=== PATIENT | female | born 1965 | race Caucasian/White ===

== ENCOUNTER 2021-09-01 17:07 | Observation (INO) | payer OTHER ==
[~2021-09-01 17:07] MED LIST: Iopamidol-370 76% 500 ML 1 ML ONE
[2021-09-01 17:39] LABS: #Eosinphils 0.1 thou/uL (0.0-0.7); #Lymphocytes 1.9 thou/uL (1.20-3.40); #Monocytes 0.9 thou/uL (0.11-0.59); #Neutrophils 9.7 thou/uL (1.40-6.50); %Basophils 0.1 % (0.0-1.0); %Eosinophils 1.1 % (0.0-10.0); %Lymphocytes 15.3 % (21.0-51.0); %Monocytes 6.8 % (0.0-10.0); %Neutrophils 76.7 % (42.0-75.0); Hemoglobin 14.9 g/dL (12.0-16.0); Mean Corpuscular HGB CONC 33.3 g/dL (32.0-36.0); Mean Corpuscular Hemoglobin 30.6 pg (27.0-31.0); Mean Corpuscular Volume 91.8 fL (78.0-98.0); Mean Platelet Volume 8.2 fL (7.4-10.4); Platelet Count 226 thou/uL (130-400); RBC Distribution Width 12.3 % (11.5-14.5); Red Blood Cell (RBC) Count 4.86 mill/uL (4.20-5.40); White Blood Cell (WBC) Count 12.7 thou/uL (4.8-10.8)
[2021-09-01 17:48] LABS: ALT (SGPT) 12 U/L (8-55); AST (SGOT) 9 U/L (5-34); Alkaline Phosphatase 105 U/L (40-110); Anion Gap 13 mmol/L (10-20); BUN (Urea Nitrogen) 16 mg/dL (9.8-20.1); Bilirubin, Total 0.9 mg/dL (0.2-1.2); Calc. Creatinine Clearance 0 mL/min (70-130); Calcium 8.9 mg/dL (7.8-10.44); Carbon Dioxide 26 mmol/L (22-29); Chloride 102 mmol/L (98-107); Globulin 2.8 g/dL (2.4-3.5); Glucose 118 mg/dL (70-105); Lipase 15 U/L (8-78); Potassium 3.9 mmol/L (3.5-5.1); Protein, Total 6.8 g/dL (6.0-8.3); Sodium 137 mmol/L (136-145)
[2021-09-01] MEDS ORDERED: Aspirin Chewable 81 MG TAB ONE (18:39)
[2021-09-01 18:52] LABS: Bilirubin Negative (Negative); Blood, Urine Negative (Negative); Clarity Turbid (Clear); Glucose, Urine (Dipstick) Normal (Negative); Ketone, Urine Negative (Negative); Leukocyte Negative Leu/uL (Negative); Nitrite Negative (Negative); Protein, Urine (Dipstick) Negative (Neg-Trace); Specific Gravity, Urine 1.017 (1.002-1.036); Urobilinogen Normal mg/dL (Less than 2)
[2021-09-01] MEDS ORDERED: Morphine 4 MG/ML VIAL ONE (18:54)
[2021-09-01 21:44] VITALS: BMI 49.9
[2021-09-01 22:17] LABS: Troponin I Less than 0.010 ng/mL (< 0.028)
[2021-09-01] MEDS ORDERED: Ondansetron PF 4 MG/2 ML Vial IVP PRN (22:43)
[2021-09-01] MEDS ORDERED: Acetaminophen 325 MG TAB PO PRN (22:43)
[2021-09-01] MEDS ORDERED: Morphine 4 MG/ML VIAL SLOW IVP PRN (22:55)
[2021-09-02 00:06] LABS: Troponin I Less than 0.010 ng/mL (< 0.028)
[2021-09-02] MEDS: Nitroglycerin 0.4 MG TAB (25 Tab Bottle) SL PRN ×2 (02:33→02:54)
[2021-09-02] MEDS ORDERED: Lidocaine 2% Viscous Solution 20 ML, Aluminum & Magnesium Hydroxide 30 ML, Donnatal Eli... SSW SCH (02:57)
[2021-09-02 03:21] LABS: #Eosinphils 0.2 thou/uL (0.0-0.7); #Lymphocytes 2.1 thou/uL (1.20-3.40); #Monocytes 0.8 thou/uL (0.11-0.59); #Neutrophils 8.3 thou/uL (1.40-6.50); %Basophils 0.1 % (0.0-1.0); %Eosinophils 1.3 % (0.0-10.0); %Lymphocytes 18.2 % (21.0-51.0); %Monocytes 7.1 % (0.0-10.0); %Neutrophils 73.3 % (42.0-75.0); Mean Corpuscular HGB CONC 33.8 g/dL (32.0-36.0); Mean Corpuscular Hemoglobin 31.4 pg (27.0-31.0); Mean Corpuscular Volume 92.7 fL (78.0-98.0); Platelet Count 200 thou/uL (130-400); RBC Distribution Width 12.2 % (11.5-14.5); Red Blood Cell (RBC) Count 4.47 mill/uL (4.20-5.40); White Blood Cell (WBC) Count 11.4 thou/uL (4.8-10.8)
[2021-09-02 03:40] LABS: Troponin I Less than 0.010 ng/mL (< 0.028)
[2021-09-02 04:02] LABS: Anion Gap 10 mmol/L (10-20); BUN (Urea Nitrogen) 11 mg/dL (9.8-20.1); Calc. Creatinine Clearance 251 mL/min (70-130); Calcium 8.7 mg/dL (7.8-10.44); Carbon Dioxide 24 mmol/L (22-29); Chloride 105 mmol/L (98-107); Glucose 111 mg/dL (70-105); Potassium 3.3 mmol/L (3.5-5.1); Sodium 136 mmol/L (136-145)
[2021-09-02] MEDS ORDERED: Ketorolac Tromethamine 30 MG/ML VIAL IVP SCH (08:30)
[2021-09-02] MEDS: Famotidine 20 MG TAB PO SCH ×2 (08:49→19:47)
[2021-09-02] MEDS: Ibuprofen 600 MG TAB PO SCH ×3 (08:49→19:47)
[2021-09-02 11:29] LABS: SARS-CoV-2 PCR by NAA Not Detected (NotDetected)
[2021-09-03] MEDS: Ibuprofen 600 MG TAB PO SCH ×2 (02:37→08:38)
[2021-09-03 04:52] LABS: #Basophils 0.1 thou/uL (0.0-0.2); #Eosinphils 0.4 thou/uL (0.0-0.7); #Monocytes 0.7 thou/uL (0.11-0.59); #Neutrophils 6.6 thou/uL (1.40-6.50); %Basophils 0.7 % (0.0-1.0); %Eosinophils 4.5 % (0.0-10.0); %Lymphocytes 20.3 % (21.0-51.0); %Monocytes 7.3 % (0.0-10.0); %Neutrophils 67.3 % (42.0-75.0); Hemoglobin 13.2 g/dL (12.0-16.0); Mean Corpuscular HGB CONC 31.7 g/dL (32.0-36.0); Mean Corpuscular Hemoglobin 29.8 pg (27.0-31.0); Mean Corpuscular Volume 94.3 fL (78.0-98.0); Mean Platelet Volume 8.4 fL (7.4-10.4); Platelet Count 189 thou/uL (130-400); RBC Distribution Width 12.3 % (11.5-14.5); Red Blood Cell (RBC) Count 4.42 mill/uL (4.20-5.40); White Blood Cell (WBC) Count 9.8 thou/uL (4.8-10.8)
[2021-09-03 05:14] LABS: Anion Gap 13 mmol/L (10-20); BUN (Urea Nitrogen) 14 mg/dL (9.8-20.1); Calc. Creatinine Clearance 244 mL/min (70-130); Calcium 8.9 mg/dL (7.8-10.44); Carbon Dioxide 22 mmol/L (22-29); Chloride 105 mmol/L (98-107); Glucose 126 mg/dL (70-105); Potassium 3.5 mmol/L (3.5-5.1); Sodium 136 mmol/L (136-145)
[2021-09-03 08:27] VITALS: BP 118/60; TEMP 98.3
[2021-09-03] MEDS: Famotidine 20 MG TAB PO SCH (08:38)
== END 2021-09-03 12:15 | disposition home or self-care (01) ==
LOC: ERS 17:07 → 2SW 20:23
PROVIDERS: ADMIT Student in an Organized Health Care Education/Training Program; ATTEND Family Medicine
DX: R07.89 Other chest pain (principal); J45.909 Unspecified asthma, uncomplicated; G43.909 Migraine, unspecified, not intractable, without status migrainosus; F17.210 Nicotine dependence, cigarettes, uncomplicated; E66.01 Morbid (severe) obesity due to excess calories; Z68.42 Body mass index [BMI] 45.0-49.9, adult; Z20.822 Contact with and (suspected) exposure to COVID-19
CPT/HCPCS: 36415; 71045; 71275; 80048; 80053; 81003; 83690; 83880; 84484; 85025; 85379; 93005; 93010; 94640; 94760; 96374; 96375; 96376; G0378; J1885; J2270; J7620; Q9967; U0003; U0005

== ENCOUNTER 2023-06-11 14:36 | Inpatient (IN) | payer BC, OTHER, SELFPAY ==
[2023-06-11 15:17] LABS: #Eosinphils 0.2 thou/uL (0.0-0.7); #Monocytes 0.7 thou/uL (0.11-0.59); #Neutrophils 7.1 thou/uL (1.40-6.50); %Basophils 0.3 % (0.0-1.0); %Eosinophils 1.5 % (0.0-10.0); %Lymphocytes 19.6 % (21.0-51.0); %Monocytes 6.9 % (0.0-10.0); %Neutrophils 71.3 % (42.0-75.0); Hematocrit 44.3 % (36.0-47.0); Hemoglobin 14.4 g/dL (12.0-16.0); Mean Corpuscular HGB CONC 32.5 g/dL (32.0-36.0); Mean Corpuscular Hemoglobin 29.9 pg (27.0-31.0); Mean Corpuscular Volume 91.9 fl (78.0-98.0); Mean Platelet Volume 10.3 fL (7.4-10.4); Platelet Count 214 10x3/uL (130-400); RBC Distribution Width 13.2 % (11.5-14.5); Red Blood Cell (RBC) Count 4.82 mill/uL (4.20-5.40)
[2023-06-11 15:40] LABS: ALT (SGPT) 20 U/L (8-55); AST (SGOT) 16 U/L (5-34); Albumin 4.1 g/dL (3.5-5.0); Alkaline Phosphatase 112 U/L (40-110); Anion Gap 14 mmol/L (10-20); BUN (Urea Nitrogen) 11 mg/dL (9.8-20.1); Bilirubin, Total 0.6 mg/dL (0.2-1.2); Calc. Creatinine Clearance 0 mL/min (70-130); Calcium 9.6 mg/dL (7.8-10.44); Carbon Dioxide 27 mmol/L (22-29); Chloride 102 mmol/L (98-107); Estimated GFR 86; Globulin 2.7 g/dL (2.4-3.5); Glucose 116 mg/dL (70-105); Protein, Total 6.8 g/dL (6.0-8.3); Sodium 139 mmol/L (136-145)
[2023-06-11 15:49] LABS: Bacteria/HPF 2+ HPF (None Seen); Bilirubin Negative (Negative); Blood, Urine Trace (Negative); CAUTI Indications for Culture Pelvic or flank pain; Clarity Clear (Clear); Glucose, Urine (Dipstick) Normal (Negative); Ketone, Urine Negative (Negative); Leukocyte 500 Leu/uL (Negative); Nitrite 1+ (Negative); Protein, Urine (Dipstick) Negative (Neg-Trace); Specific Gravity, Urine 1.012 (1.002-1.036); Urobilinogen Normal mg/dL (Less than 2); WBC/HPF 21-50 HPF (0-3); pH, Urine 6.5 (5.0-9.0)
[2023-06-11 15:51] LABS: Urine Culture Reflex Yes Yes
[2023-06-11] MEDS ORDERED: Ondansetron PF 4 MG/2 ML Vial ONE (15:52)
[2023-06-11] MEDS ORDERED: Morphine 4 MG/ML VIAL ONE ×2 (15:52→21:46)
[2023-06-11] MEDS ORDERED: Iopamidol-370 76% 500 ML MDV (1 ML CHARGE) ONE (16:00)
[2023-06-11] MEDS ORDERED: cefTRIAXone (ROCEPHIN) 2 GM VIAL ONE (16:25)
[2023-06-11] MEDS ORDERED: fentaNYL 50 mcg/mL 1 mL Vial ONE ×2 (17:40)
[2023-06-11 22:54] LABS: Lactic Acid 1.5 mmol/L (0.5-2.2)
[2023-06-12 00:18] LABS: Troponin I 0.013 ng/mL (< 0.028)
[2023-06-12] MEDS ORDERED: Morphine 2 MG/ML VIAL SLOW IVP PRN (00:28)
[2023-06-12] MEDS: cefTRIAXone\\ROCEPHIN 1 GM in Sodium Chloride 0.9% 100 ML IVPB SCH (01:23)
[2023-06-12] MEDS: Lactated Ringer's 1,000 ML IV SCH ×3 (02:46→20:20)
[2023-06-12] MEDS ORDERED: Morphine 2 MG/ML VIAL ONE (02:48)
[2023-06-12 05:25] LABS: Troponin I Less than 0.010 ng/mL (< 0.028)
[2023-06-12] MEDS ORDERED: Iopamidol 30 ML ONE (07:22)
[2023-06-12] MEDS ORDERED: Succinylcholine 200 MG/10 ml SYRINGE FS ONE (07:30)
[2023-06-12] MEDS ORDERED: Rocuronium Bromide 10 MG/ML (10ML VIAL) ONE (07:30)
[2023-06-12] MEDS ORDERED: PROPOFOL 200 MG/20 ML VIAL ONE (07:30)
[2023-06-12] MEDS ORDERED: Lidocaine 1% PF 5 ML VIAL ONE (07:30)
[2023-06-12] MEDS ORDERED: fentaNYL 50 mcg/mL 1 mL Vial ONE ×4 (08:05→09:45)
[2023-06-12] MEDS ORDERED: SUGAMMADEX SODIUM 200 MG/2 ML VIAL ONE (08:51)
[2023-06-12] MEDS ORDERED: Ondansetron HCl/PF 4 MG/2 ML Vial IVP PRN (09:11)
[2023-06-12] MEDS ORDERED: Promethazine HCl 25 MG/ML VIAL IM PRN (09:11)
[2023-06-12] MEDS ORDERED: Morphine 4 MG/ML VIAL ONE (10:07)
[2023-06-12] MEDS: Morphine 4 MG/ML VIAL SLOW IVP PRN ×3 (10:10→20:25)
[2023-06-12] MEDS ORDERED: Oxybutynin 5 MG TAB PO SCH (13:45)
[2023-06-12] MEDS ORDERED: Oxybutynin 5 MG TAB ONE ×2 (13:51)
[2023-06-12] MEDS ORDERED: Phenazopyridine HCl 100 MG TAB ONE (13:52)
[2023-06-12] MEDS ORDERED: diphenhydrAMINE 25 MG CAP ONE (13:54)
[2023-06-12] MEDS: Famotidine 20 MG TAB PO SCH ×2 (15:59→20:19)
[2023-06-12] MEDS: Phenazopyridine HCl 100 MG TAB PO SCH (17:19)
[2023-06-13] MEDS: cefTRIAXone\\ROCEPHIN 1 GM in Sodium Chloride 0.9% 100 ML IVPB SCH (00:04)
[2023-06-13] MEDS: Morphine 4 MG/ML VIAL SLOW IVP PRN ×6 (00:17→22:27)
[2023-06-13] MEDS: diphenhydrAMINE 25 MG CAP PO PRN ×2 (05:07→13:37)
[2023-06-13] MEDS: Lactated Ringer's 1,000 ML IV SCH ×2 (05:13→18:16)
[2023-06-13] MEDS: Famotidine 20 MG TAB PO SCH ×2 (08:29→20:57)
[2023-06-13] MEDS: Phenazopyridine HCl 100 MG TAB PO SCH ×3 (08:29→18:11)
[2023-06-13] MEDS ORDERED: Ondansetron PF 4 MG/2 ML Vial IVP PRN (16:34)
[2023-06-14] MEDS: cefTRIAXone\\ROCEPHIN 1 GM in Sodium Chloride 0.9% 100 ML IVPB SCH (01:00)
[2023-06-14] MEDS: Morphine 4 MG/ML VIAL SLOW IVP PRN (04:27)
[2023-06-14 06:11] LABS: #Eosinphils 0.2 thou/uL (0.0-0.7); #Monocytes 0.7 thou/uL (0.11-0.59); #Neutrophils 4.1 thou/uL (1.40-6.50); %Basophils 0.3 % (0.0-1.0); %Eosinophils 2.6 % (0.0-10.0); %Lymphocytes 24.7 % (21.0-51.0); %Monocytes 10.7 % (0.0-10.0); %Neutrophils 61.2 % (42.0-75.0); Hematocrit 39.7 % (36.0-47.0); Hemoglobin 12.8 g/dL (12.0-16.0); Mean Corpuscular HGB CONC 32.2 g/dL (32.0-36.0); Mean Corpuscular Hemoglobin 29.6 pg (27.0-31.0); Mean Corpuscular Volume 91.9 fl (78.0-98.0); Mean Platelet Volume 10.9 fL (7.4-10.4); Platelet Count 163 10x3/uL (130-400); RBC Distribution Width 13.2 % (11.5-14.5); Red Blood Cell (RBC) Count 4.32 mill/uL (4.20-5.40); White Blood Cell (WBC) Count 6.6 10x3/uL (4.8-10.8)
[2023-06-14 06:34] LABS: Anion Gap 11 mmol/L (10-20); BUN (Urea Nitrogen) 9 mg/dL (9.8-20.1); Calc. Creatinine Clearance 233 mL/min (70-130); Calcium 8.7 mg/dL (7.8-10.44); Carbon Dioxide 29 mmol/L (22-29); Chloride 102 mmol/L (98-107); Estimated GFR 101; Glucose 108 mg/dL (70-105); Potassium 3.6 mmol/L (3.5-5.1); Sodium 138 mmol/L (136-145)
[2023-06-14 08:17] VITALS: BP 120/71; TEMP 98.5
[2023-06-14] MEDS: Phenazopyridine HCl 100 MG TAB PO SCH (08:44)
[2023-06-14] MEDS: Famotidine 20 MG TAB PO SCH (08:44)
== END 2023-06-14 12:19 | disposition home or self-care (01) | DRG 660 ==
LOC: ERS 14:36 → ERHOLD 23:00 → T4-A 06-12 15:01 → OBSVTOIN 06-13 09:55
PROVIDERS: ADMIT Internal Medicine; ATTEND Hospitalist
PROC: 0T738DZ Dilation of Right Kidney Pelvis with Intraluminal Device, Via Natural or Artificial Opening Endoscopic (ICD-10-PCS; principal; 2023-06-13)
PROC: 0T748DZ Dilation of Left Kidney Pelvis with Intraluminal Device, Via Natural or Artificial Opening Endoscopic (ICD-10-PCS; 2023-06-13)
PROC: BT141ZZ Fluoroscopy of Kidneys, Ureters and Bladder using Low Osmolar Contrast (ICD-10-PCS; 2023-06-13)
DX: N10 Acute pyelonephritis (principal); Z68.42 Body mass index [BMI] 45.0-49.9, adult; N13.30 Unspecified hydronephrosis; N39.0 Urinary tract infection, site not specified; K44.9 Diaphragmatic hernia without obstruction or gangrene; N13.2 Hydronephrosis with renal and ureteral calculous obstruction; E66.01 Morbid (severe) obesity due to excess calories
CPT/HCPCS: 36415; 74177; 74420; 80048; 80053; 81001; 83605; 84484; 85025; 87040; 87077; 87086; 87186; 96376; C2617; G0378; J0696; J2270; J2272; J2405; J2704; J3010; J3490; J7120; Q9967